=== PATIENT | male | born 1965 | race Caucasian/White ===

== ENCOUNTER 2017-06-16 01:35 | Inpatient (IN) | payer BC ==
[2017-06-16] MEDS ORDERED: hydrALAZINE 20 MG/ML VIAL. IVP (02:30)
[2017-06-16] MEDS: HYDROmorphone 2 MG/ML VIAL IVP (03:52)
[2017-06-16 08:06] LABS: ADD MAN DIFF? NO
[2017-06-16 08:09] LABS: BASO % 0 % (0-3); EOS % 0 % (0-3); HEMATOCRIT 47.2 % (39.0-53.0); LYMPH % 16 % (24-48); MEAN CORPUSCULAR HEMOGLOBIN 32 pg (25-35); MEAN CORPUSCULAR HGB CONC 34 g/dL (31-37); MEAN CORPUSCULAR VOLUME 94 fL (79-100); MONO # 0.1 x10^3/uL (0.0-1.1); MONO % 1 % (0-9); NEUT # 5.4 x10^3uL (1.8-7.7); NEUT % 83 % (31-73); PLATELET COUNT 223 x10^3/uL (140-400); RED BLOOD COUNT 5.05 x10^6/uL (4.30-5.70); RED CELL DISTRIBUTION WIDTH 12.9 % (11.5-14.5); WHITE BLOOD COUNT 6.6 x10^3/uL (4.0-11.0)
[2017-06-16 08:22] LABS: ANION GAP 8 (6-14); BLOOD UREA NITROGEN 18 mg/dL (8-26); CALCIUM 8.1 mg/dL (8.5-10.1); CARBON DIOXIDE 28 mmol/L (21-32); CHLORIDE 102 mmol/L (98-107); CREATININE 1.2 mg/dL (0.7-1.3); GFR 63.8; GLUCOSE 129 mg/dL (70-99); POTASSIUM 4.3 mmol/L (3.5-5.1); SODIUM 138 mmol/L (136-145)
[2017-06-16] MEDS ORDERED: SALIVA STIMULANT AGENT 44ML SPRAY BOTTLE. PO (09:15)
[2017-06-16] MEDS ORDERED: NICOTINE 21MG PATCH. TD (09:30)
[2017-06-16] MEDS ORDERED: NICOTINE POLACRILEX 2MG GUM PACKAGE of 12. BC (09:30)
[2017-06-16] MEDS: FAMOTIDINE 20 MG/2 ML VIAL IVP ×2 (09:30→10:00)
[2017-06-16] MEDS ORDERED: PROPOFOL 20 ML IV ×2 (11:40→11:44)
[2017-06-16] MEDS ORDERED: LIDOCAINE 2% PF Vial for OR 5 ML VIAL. (11:45)
[2017-06-16] MEDS: PANTOPRAZOLE 40 MG TABLET.DR. PO (13:19)
== END 2017-06-16 17:40 | disposition home or self-care (01) | DRG 392 ==
LOC: 5 SOUTH 01:35
PROC: 0DJ08ZZ Inspection of Upper Intestinal Tract, Via Natural or Artificial Opening Endoscopic (ICD-10-PCS; principal; 2017-06-16 11:47)
DX: K21.0 Gastro-esophageal reflux disease with esophagitis (principal); R13.10 Dysphagia, unspecified; R10.13 Epigastric pain; K29.80 Duodenitis without bleeding; F17.210 Nicotine dependence, cigarettes, uncomplicated; I10 Essential (primary) hypertension; Z68.33 Body mass index [BMI] 33.0-33.9, adult; Z90.49 Acquired absence of other specified parts of digestive tract; Z71.6 Tobacco abuse counseling; Z80.8 Family history of malignant neoplasm of other organs or systems; Z80.1 Family history of malignant neoplasm of trachea, bronchus and lung; Z82.49 Family history of ischemic heart disease and other diseases of the circulatory system
CPT/HCPCS: 36415; 80048; 85025; J1170; J2060; J2704; S0028

== ENCOUNTER → 2019-07-20 | Day surgery (SDC) | payer BC, OTHER ==
[~2019-07-20] MED LIST: HYDROmorphone 2 MG/ML VIAL IV PRN; IV RINGERS,LACTATED 1000ML 1,000 ML IV SCH; LIDOCAINE 1% PF 2 ML VIAL. ID PRN; LIDOCAINE 2% PF 5 ML VIAL. ONE; LISI1TAB23 PO; MORPHINE SULFATE 2 MG/ML VIAL. IV PRN; ONDANSETRON PF 4 MG/2 ML VIAL. IV PRN; PANT40TA77 PO; PROCHLORPERAZINE 10 MG/2 ML VIAL. IV PRN; PROPOFOL 20 ML IV ONE; fentaNYL PF VIAL 100 MCG/2 ML VIAL IV PRN
--- NOTE | 2019-07-20 07:27 | HP ---
ADMIT DATE: 07/20/2019 UPDATED HISTORY AND PHYSICAL REFERRING PHYSICIAN: Mark Anthony Johnson MD REASON: History of colonic polyps. HISTORY OF PRESENT ILLNESS: A 53-year-old male with past medical history significant for hypertension and gastroesophageal reflux disease with history of colonic polyps who is here for surveillance exam. Bowel habits are regular without diarrhea or constipation. There has been no melena and/or hematochezia. Weight and appetite are stable. He is otherwise without additional complaints. PAST MEDICAL HISTORY: Hypertension, history of colonic polyps, GERD. ALLERGIES: None. MEDICATIONS: Lisinopril, hydrochlorothiazide, and pantoprazole. FAMILY HISTORY: Significant for heart disease with paternal grandparents. SOCIAL HISTORY: He is a social drinker and a user of smokeless tobacco. PAST SURGICAL HISTORY: Significant for appendectomy. REVIEW OF SYSTEMS: Per records. PHYSICAL EXAMINATION: GENERAL: Reveals a well-nourished, well-developed male who is alert, cooperative, in no acute distress. VITAL SIGNS: Temperature 97.4, pulse 78, respirations 20. LUNGS: Clear. CARDIOVASCULAR: Reveals an S1 and S2 without S3, S4 or appreciable murmur. ABDOMEN: With a soft abdomen, normal bowel sounds, without appreciable hepatosplenomegaly with right lower quadrant appendectomy incision. IMPRESSION: History of colonic polyps. Surveillance exam is recommended at this time. Risks and benefits of the procedure including risk of perforation requiring operation have been discussed. The patient is willing to proceed. LAURA QUINN MD DR: FELICIA/natan JOB#: [id number] / [id number]
[2019-07-20 07:43] VITALS: BP 114/81
== END | disposition home or self-care (01) ==
LOC: ENDOS 05:54
PROVIDERS: ATTEND Internal Medicine Gastroenterology
DX: Z12.11 Encounter for screening for malignant neoplasm of colon (principal); K57.30 Diverticulosis of large intestine without perforation or abscess without bleeding; K64.0 First degree hemorrhoids; I10 Essential (primary) hypertension; K21.9 Gastro-esophageal reflux disease without esophagitis; Z86.010 Personal history of colon polyps; Z72.89 Other problems related to lifestyle; Z72.0 Tobacco use
CPT/HCPCS: 45378; J2001; J2704